=== PATIENT | male | born 1995 | race Caucasian/White ===

== ENCOUNTER 2019-07-08 00:50 | Emergency (ER) | payer BC ==
[~2019-07-08] VITALS: Ht 177.8 cm; Wt 72.6 kg
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
[2019-07-08] MEDS ORDERED: TDAP DIPH,PERTUSS,TET VAC/PF 0.5 ML DISP.SYRIN IM ONE ×2 (01:10→01:15)
--- NOTE | 2019-07-08 01:15 | NUR ---
ALL EXTREMITIES PMSC NORMAL, INTACT, CAP REFILL < 3 SECS
--- NOTE | 2019-07-08 01:30 | NUR ---
SKIN TEAR ON 1ST DIGIT OF L HAND IRRIGATED. ABRASION ON R KNEE IRRIGATED.
--- NOTE | 2019-07-08 01:50 | NUR ---
[facility]LE[facility] DANG UNIT [id number] AT PT'S BEDSIDE FOR PT INTERVIEW.
[2019-07-08 03:12] VITALS: BP 131/78
--- NOTE | 2019-07-08 03:12 | NUR ---
Patient discharged to home in stable conditon. Written and verbal after care instructions given. Patient verbalizes understanding of instructions. all belongings w/ pt. pt self-ambulated w/o difficulty.
== END 2019-07-08 03:13 | disposition home or self-care (01) ==
LOC: ER 00:58
DX: S83.91XA Sprain of unspecified site of right knee, initial encounter (principal); S43.401A Unspecified sprain of right shoulder joint, initial encounter; M25.531 Pain in right wrist; V23.4XXA Motorcycle driver injured in collision with car, pick-up truck or van in traffic accident, initial encounter; Y93.89 Activity, other specified; Y92.410 Unspecified street and highway as the place of occurrence of the external cause; Y99.8 Other external cause status
CPT/HCPCS: 73030; 90715; A4217; A4663